=== PATIENT | female | born 1985 | race Caucasian/White ===

== ENCOUNTER 2018-01-16 00:41 | Emergency (ER) | payer OTHER ==
[2018-01-16 01:16] VITALS: BP 130/54; PULSE 75; TEMP 98.5; BMI 34.3
--- NOTE | 2018-01-16 01:31 | PDOC ---
Attending Attestation - Resident Resident Name: Jeremiah Tavarez - ED Attending Attestation I have performed the following: I have examined & evaluated the patient, The case was reviewed & discussed with the resident, I agree w/resident's findings & plan, Exceptions are as noted <Craline Mena - Last Filed: 01/16/18 01:30> - HPI HPI: The patient is a 34 year old female with PMHx of cholecystectomy, who presents with chest pain for several hours prior to arriving. She also notes associated tingling in her hand and mouth. 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 She states she gets winded from walking back and forth a lot. She is currently on her menses. Denies leg swelling, prior blood clots, control, and prior travel. She denies fever, chills, nausea, or vomiting. FMHX: Mother - of heart attack at 42. <Cinthya Weiss - Last Filed: 01/16/18 02:05>
--- NOTE | 2018-01-16 01:41 | PDOC ---
History of Present Illness - General Chief Complaint: Chest Pain Stated Complaint: CHEST PAIN Time Seen by Provider: 01/16/18 01:10 History Source: Patient Exam Limitations: No Limitations - History of Present Illness Initial Comments: 01/16/18 01:42 Patient is a 32F with history of cholecystectomy here today complaining of chest pain that onset several hours prior to presentation. The chest pain was associated with tingling in the hands and around the mouth. Denies fevers, chills, nausea, vomiting. Endorses feeling of impending doom. Patient currently has chest pain, but has improved significantly. Denies leg swelling, prior blood clots, control, and prior travel. Denies shortness of breath. Patient is currently menstruating. Patient reports that patient's mother at 42 from heart attack. Past History - Past Medical History Allergies/Adverse Reactions: Allergies Allergy/AdvReac Type Severity Reaction Status Date / Time No Known Allergies Allergy Verified 01/16/18 01:43 Home Medications: Ambulatory Orders NK [No Known Home Medication] 01/16/18 - Surgical History Cholecystectomy: Yes - Immunization History Immunization Up to Date: Yes - Suicide/Smoking/Psychosocial Hx Smoking History: Never smoked Have you smoked in the past 12 months: No Information on smoking cessation initiated: No Hx Alcohol Use: No Drug/Substance Use Hx: No Substance Use Type: None Review of Systems - Review of Systems Comments:: 01/16/18 01:42 GENERAL/CONSTITUTIONAL: No fever or chills. No weakness. HEAD, EYES, EARS, NOSE AND THROAT: No change in vision. No sore throat. CARDIOVASCULAR: + chest pain. No shortness of breath RESPIRATORY: No cough, wheezing, or hemoptysis. GASTROINTESTINAL: No nausea, vomiting, diarrhea or constipation. GENITOURINARY: No dysuria, frequency, or change in urination. MUSCULOSKELETAL: No joint or muscle swelling or pain. No neck or back pain. SKIN: No rash NEUROLOGIC: No headache, vertigo, loss of consciousness, or change in strength/ sensation. ENDOCRINE: No increased thirst. No abnormal weight change HEMATOLOGIC/LYMPHATIC: No anemia, easy bleeding, or history of blood clots. ALLERGIC/IMMUNOLOGIC: No hives or skin allergy. *Physical Exam - Vital Signs Last Vital Signs Temp Pulse Resp BP Pulse Ox 98.5 F 75 18 130/54 100 01/16/18 00:55 01/16/18 00:55 01/16/18 00:55 01/16/18 00:55 01/16/18 00:55 - Physical Exam Comments: 01/16/18 01:52 GENERAL: Awake, alert, and fully oriented, in no acute distress HEAD: No signs of trauma, normocephalic, atraumatic EYES: PERRLA, EOMI, sclera anicteric, conjunctiva clear ENT: Auricles normal inspection, hearing grossly normal, nares patent, oropharynx clear without exudates. Moist mucosa NECK: Normal ROM, supple, no lymphadenopathy, JVD, or masses LUNGS: No distress, speaks full sentences, clear to auscultation bilaterally HEART: Regular rate and rhythm, normal S1 and S2, no murmurs, rubs or gallops, peripheral pulses normal and equal bilaterally. ABDOMEN: Soft, nontender, normoactive bowel sounds. No guarding, no rebound. No masses EXTREMITIES: Normal inspection, Normal range of motion, no edema. No clubbing or cyanosis. NEUROLOGICAL: Cranial nerves II through XII grossly intact. Normal speech, normal gait, no focal sensorimotor deficits SKIN: Warm, Dry, normal turgor, no rashes or lesions noted. ED Treatment Course - RADIOLOGY Radiology Studies Ordered: Category Date Time Status CHEST PA & LAT [RAD] Stat Radiology 01/16/18 01:24 Ordered Medical Decision Making - Medical Decision Making 01/16/18 01:52 Patient is 32F with history of cholecystectomy here today with chest pain. Not suspicious story. PERC negative. Vital signs normal and stable. Will workup with upreg, ekg, cxr. Will order labs due to patient's family history. EKG shows normal sinus rhythm with rate of 70. No st elevations/depressions. No significant t wave abnormalities. Normal intervals. Normal axis. 01/16/18 02:[address] Bhat *DC/Admit/Observation/Transfer Diagnosis at time of Disposition: Chest pain - Discharge Dispostion Condition at time of disposition: Stable - Referrals - Patient Instructions - Post Discharge Activity
[2018-01-16 02:42] LABS: HEMATOCRIT 39.1 % (32.4-45.2); HEMOGLOBIN 13.4 GM/dL (10.7-15.3); MCH 30.9 pg (25.7-33.7); MCHC 34.2 g/dl (32.0-36.0); MEAN CELL VOLUME 90.2 fl (80-96); PLATELET COUNT 238 K/MM3 (134-434); RBC 4.34 M/mm3 (3.60-5.2); RDW 12.8 % (11.6-15.6); WHITE BLOOD COUNT 5.5 K/mm3 (4.0-10.0)
[2018-01-16 02:56] LABS: INR 1.09 (0.82-1.09); PROTHROMBIN TIME (PATIENT) 12.3 SEC (9.7-13.0)
[2018-01-16 03:07] LABS: ALBUMIN 3.9 g/dl (3.4-5.0); ANION GAP 9 (8-16); BILIRUBIN,TOTAL 0.2 mg/dL (0.2-1.0); BLOOD UREA NITROGEN 17 mg/dL (7-18); CALCIUM 8.3 mg/dL (8.5-10.1); CHLORIDE 108 mmol/L (98-107); CO2 24 mmol/L (21-32); CREATININE 0.8 mg/dL (0.55-1.02); GLUCOSE,RANDOM 101 mg/dL (74-106); POTASSIUM 3.5 mmol/L (3.5-5.1); SGOT/AST 14 U/L (15-37); SGPT/ALT 30 U/L (12-78); SODIUM 141 mmol/L (136-145); TOT PROT 7.2 g/dl (6.4-8.2)
[2018-01-16 03:09] LABS: ALK PHOS 113 U/L (45-117)
--- NOTE | 2018-01-16 04:02 | PDOC ---
*Physical Exam - Vital Signs Last Vital Signs Temp Pulse Resp BP Pulse Ox 98.5 F 75 18 130/54 100 01/16/18 00:55 01/16/18 00:55 01/16/18 00:55 01/16/18 00:55 01/16/18 00:55 - Physical Exam Comments: Patient signed out to me for low risk chest pain pending labs. Labs returned wnl including negative troponin and WNL ekg. Will DC with return precautions and PCP follow up. 01/16/18 04:01 ED Treatment Course - LABORATORY CBC & Chemistry Diagram: 01/16/18 02:07 01/16/18 02:07 - ADDITIONAL ORDERS Additional order review: Laboratory Results 01/16/18 01/16/18 01/16/18 02:07 02:07 02:07 PT with INR 12.30 INR 1.09 Sodium 141 Potassium 3.5 Chloride 108 H Carbon Dioxide 24 Anion Gap 9 BUN 17 Creatinine 0.8 Creat Clearance w eGFR > 60 Random Glucose 101 Calcium 8.3 L Total Bilirubin 0.2 AST 14 L ALT 30 Alkaline Phosphatase 113 Creatine Kinase 135 Troponin I < 0.02 Total Protein 7.2 Albumin 3.9 Urine HCG, Qual Negative 01/16/18 02:07 RBC 4.34 MCV 90.2 MCHC 34.2 RDW 12.8 MPV 8.0 *DC/Admit/Observation/Transfer Diagnosis at time of Disposition: Chest pain - Discharge Dispostion Condition at time of disposition: Stable - Referrals - Patient Instructions - Post Discharge Activity
--- NOTE | 2018-01-16 04:02 | PDOC ---
*Physical Exam - Vital Signs Last Vital Signs Temp Pulse Resp BP Pulse Ox 98.5 F 75 18 130/54 100 01/16/18 00:55 01/16/18 00:55 01/16/18 00:55 01/16/18 00:55 01/16/18 00:55 ED Treatment Course - LABORATORY CBC & Chemistry Diagram: 01/16/18 02:07 01/16/18 02:07 - ADDITIONAL ORDERS Additional order review: Laboratory Results 01/16/18 01/16/18 01/16/18 02:07 02:07 02:07 PT with INR 12.30 INR 1.09 Sodium 141 Potassium 3.5 Chloride 108 H Carbon Dioxide 24 Anion Gap 9 BUN 17 Creatinine 0.8 Creat Clearance w eGFR > 60 Random Glucose 101 Calcium 8.3 L Total Bilirubin 0.2 AST 14 L ALT 30 Alkaline Phosphatase 113 Creatine Kinase 135 Troponin I < 0.02 Total Protein 7.2 Albumin 3.9 Urine HCG, Qual Negative 01/16/18 02:07 RBC 4.34 MCV 90.2 MCHC 34.2 RDW 12.8 MPV 8.0 Medical Decision Making - Medical Decision Making 01/16/18 04:01 32 YOF with CP. signed out from Dr. Mena pending labs and reeval. labs wnl, trop neg. reassuring results. will discharge in stable condition. return precautions discussed. *DC/Admit/Observation/Transfer Diagnosis at time of Disposition: Chest pain - Discharge Dispostion Condition at time of disposition: Stable - Referrals - Patient Instructions - Post Discharge Activity
--- NOTE | 2018-01-16 08:35 | EKG ---
Test Reason : Blood Pressure : / mmHG Vent. Rate : 070 BPM Atrial Rate : 070 BPM P-R Int : 134 ms QRS Dur : 090 ms QT Int : 392 ms P-R-T Axes : 043 029 025 degrees QTc Int : 423 ms NORMAL SINUS RHYTHM WITH SINUS ARRHYTHMIA CANNOT RULE OUT INFERIOR INFARCT , AGE UNDETERMINED ABNORMAL ECG WHEN COMPARED WITH ECG OF 29-JUN-2015 01:59, NONSPECIFIC T WAVE ABNORMALITY NOW EVIDENT IN ANTERIOR LEADS Confirmed by CYNTHIA WADSWORTH, MARILU ([id number]) on 01/16/2018 8:34:57 AM Referred By: Confirmed By:MARILU MARIE MD
== END 2018-01-16 05:45 | disposition home or self-care (01) ==
LOC: JER 00:41
DX: R07.9 Chest pain, unspecified (principal); Z90.49 Acquired absence of other specified parts of digestive tract
CPT/HCPCS: 36415; 71046-TC-FY; 80053; 82550; 84484; 84703; 85027; 85610; 93005; 93010; 99282-25

== ENCOUNTER 2019-02-17 22:55 | Emergency (ER) | payer OTHER | END 2019-02-18 00:41 | disposition home or self-care (01) | LOC: JER 22:55 ==

== ENCOUNTER 2023-07-03 14:56 | Emergency (ER) | payer OTHER ==
[2023-07-03 15:00] VITALS: BP 147/55; PULSE 93; RESP 20; TEMP 98.1; BMI 37.6
[2023-07-03] MEDS ORDERED: SODIUM CHLORIDE 0.9% 500 ML INFUS.BAG IV ONE (15:11)
[2023-07-03 16:54] LABS: HEMATOCRIT 41.5 % (32.4-45.2); HEMOGLOBIN 13.9 GM/dL (10.7-15.3); MCH 29.7 pg (25.7-33.7); MCHC 33.5 g/dl (32.0-36.0); MEAN CELL VOLUME 88.5 fl (80-96); MEAN PLT VOLUME 7.5 fl (7.5-11.1); PLATELET COUNT 267 10^3/uL (134-434); RBC 4.69 M/mm3 (3.60-5.2); RDW 13.9 % (11.6-15.6); WHITE BLOOD COUNT 5.3 K/mm3 (4.0-10.0)
[2023-07-03 16:57] LABS: EPI CELLS >36 /uL (0-25.1); HYALINE CASTS 0 /uL (0-3.1); URINE APPEARANCE CLEAR; URINE BACTERIA 161 /uL (0-1359); URINE BILIRUBIN NEGATIVE (NEGATIVE); URINE COLOR YELLOW; URINE GLUCOSE (UA) NEGATIVE (NEGATIVE); URINE KETONE NEGATIVE (NEGATIVE); URINE LEUK ESTERASE NEGATIVE (NEGATIVE); URINE NITRITE NEGATIVE (NEGATIVE); URINE PROTEIN NEGATIVE (NEGATIVE); URINE RBC 19 /uL (0-23.9); URINE UROBILINOGEN 0.2 mg/dL (0.2-1.0); URINE WBC 6 /uL (0-25.8)
[2023-07-03 17:16] LABS: POTASSIUM 3.7 mmol/L (3.5-5.1)
[2023-07-03 17:19] LABS: ALBUMIN 3.7 g/dl (3.4-5.0)
[2023-07-03 17:22] LABS: CREATININE 0.6 mg/dL (0.55-1.3)
[2023-07-03 17:23] LABS: TOT PROT 7.4 g/dl (6.4-8.2)
[2023-07-03 17:24] LABS: BILIRUBIN,TOTAL 0.3 mg/dL (0.2-1)
== END 2023-07-03 20:25 | disposition home or self-care (01) ==
LOC: JER 14:56
DX: O20.9 Hemorrhage in early pregnancy, unspecified (principal); O26.891 Other specified pregnancy related conditions, first trimester; R10.2 Pelvic and perineal pain; Z3A.08 8 weeks gestation of pregnancy
CPT/HCPCS: 36415; 76817-TC; 80053; 81003; 84702; 85027; 86850; 86900; 86901; 87086; 87491; 87591; 87661; 99284-25

== ENCOUNTER 2023-07-05 17:11 | Emergency (ER) | payer OTHER ==
[2023-07-05 17:21] VITALS: TEMP 97.5; BMI 45.0
[2023-07-05] MEDS ORDERED: ACETAMINOPHEN 1000 MG/100 ML BAG IVPB ONE (18:58)
[2023-07-05] MEDS ORDERED: ACETAMINOPHEN INJECTION 100 ML IVPB ONE (19:29)
[2023-07-05 19:47] LABS: BASO % 0.8 % (0-2.0); EOS % 0.2 % (0-4.5); HEMATOCRIT 39.9 % (32.4-45.2); HEMOGLOBIN 13.3 GM/dL (10.7-15.3); LYMPH % 26.6 % (8-40); MCH 30.1 pg (25.7-33.7); MCHC 33.4 g/dl (32.0-36.0); MEAN PLT VOLUME 7.2 fl (7.5-11.1); MONO % 5.2 % (3.8-10.2); NEUT % 67.2 % (42.8-82.8); PLATELET COUNT 267 10^3/uL (134-434); RBC 4.43 M/mm3 (3.60-5.2); RDW 13.4 % (11.6-15.6); WHITE BLOOD COUNT 6.8 K/mm3 (4.0-10.0)
[2023-07-05 19:50] LABS: EPI CELLS 34 /uL (0-25.1); HYALINE CASTS 0 /uL (0-3.1); PH,URINE 5.5 (5.0-8.0); URINE APPEARANCE TURBID; URINE BACTERIA 10 /uL (0-1359); URINE BILIRUBIN 1+ (NEGATIVE); URINE COLOR RED; URINE GLUCOSE (UA) NEGATIVE (NEGATIVE); URINE KETONE NEGATIVE (NEGATIVE); URINE LEUK ESTERASE 1+ (NEGATIVE); URINE NITRITE NEGATIVE (NEGATIVE); URINE PROTEIN 2+ (NEGATIVE); URINE UROBILINOGEN 0.2 mg/dL (0.2-1.0); URINE WBC 49 /uL (0-25.8)
[2023-07-05 19:55] LABS: INR 1.05 (0.83-1.09); PROTHROMBIN TIME (PATIENT) 12.2 SEC (9.7-13.0)
[2023-07-05 19:57] LABS: ACTIVATED PTT 33.2 SECONDS (25.2-36.5)
[2023-07-05 20:07] LABS: POTASSIUM 3.5 mmol/L (3.5-5.1)
[2023-07-05 20:09] LABS: ALBUMIN 3.6 g/dl (3.4-5.0); BLOOD UREA NITROGEN 10.7 mg/dL (7-18); CALCIUM 8.5 mg/dL (8.5-10.1)
[2023-07-05 20:12] LABS: CREATININE 0.7 mg/dL (0.55-1.3)
[2023-07-05 20:14] LABS: BILIRUBIN,TOTAL 0.2 mg/dL (0.2-1); TOT PROT 7.2 g/dl (6.4-8.2)
[2023-07-05 21:31] LABS: URINE RBC 43058.7 /uL (0-23.9); YEAST NONE SEEN (NEGATIVE)
[2023-07-05] MEDS ORDERED: KETOROLAC TROMETHAMINE 15 MG/ML VIAL IVPUSH ONE (21:33)
[2023-07-05] MEDS ORDERED: KETOROLAC TROMETHAMINE 15 MG/ML VIAL ONE (21:43)
[2023-07-05 22:49] LABS: BASO % 0.3 % (0-2.0); EOS % 0.3 % (0-4.5); HEMATOCRIT 39.5 % (32.4-45.2); HEMOGLOBIN 13.3 GM/dL (10.7-15.3); LYMPH % 23.3 % (8-40); MCH 29.8 pg (25.7-33.7); MCHC 33.7 g/dl (32.0-36.0); MEAN CELL VOLUME 88.4 fl (80-96); MEAN PLT VOLUME 7.2 fl (7.5-11.1); MONO % 5.9 % (3.8-10.2); NEUT % 70.2 % (42.8-82.8); PLATELET COUNT 265 10^3/uL (134-434); RBC 4.46 M/mm3 (3.60-5.2); RDW 13.5 % (11.6-15.6); WHITE BLOOD COUNT 7.9 K/mm3 (4.0-10.0)
[2023-07-05 23:57] VITALS: BP 110/69; PULSE 97; RESP 19
== END 2023-07-05 23:57 | disposition home or self-care (01) ==
LOC: JER 17:11
DX: O03.9 Complete or unspecified spontaneous abortion without complication (principal); R10.2 Pelvic and perineal pain
CPT/HCPCS: 36415; 76817-TC; 80053; 81003; 84702; 85025; 85610; 85730; 86850; 86900; 86901; 87086; 99284-25